=== PATIENT | male | born 1995 | race Caucasian/White ===

== ENCOUNTER 2019-10-28 02:47 | Emergency (ER) | payer SELFPAY ==
[~2019-10-28] VITALS: Ht 185.4 cm; Wt 81.6 kg
[2019-10-28 02:47] VITALS: BP_SYST 186
[2019-10-28 03:13] VITALS: BP_SYST 166
== END 2019-10-28 03:13 ==
LOC: SED 02:47
DX: S09.90XA Unspecified injury of head, initial encounter (principal); I10 Essential (primary) hypertension; F17.290 Nicotine dependence, other tobacco product, uncomplicated; F12.90 Cannabis use, unspecified, uncomplicated; W22.8XXA Striking against or struck by other objects, initial encounter; Y93.89 Activity, other specified; Y92.89 Other specified places as the place of occurrence of the external cause; Y99.8 Other external cause status
CPT/HCPCS: 99283